=== PATIENT | male | born 1960 | race Caucasian/White ===

== ENCOUNTER → 2023-07-13 07:31 | Outpatient (REF) | payer OTHER, SELFPAY | LOC: RAD 07:31 | PROVIDERS: ATTENDING PHYSICIAN Internal Medicine Rheumatology; FAMILY PHYSICIAN Internal Medicine | DX: E83.110 Hereditary hemochromatosis (principal); L40.9 Psoriasis, unspecified; M25.50 Pain in unspecified joint; M79.643 Pain in unspecified hand; M79.671 Pain in right foot; M79.672 Pain in left foot | CPT/HCPCS: 73130; 73630 ==

== ENCOUNTER 2023-07-13 12:52 | Outpatient (RCR) | payer OTHER, SELFPAY ==
[2023-07-13 13:19] VITALS: BP 144/67
[2023-07-13 13:46] VITALS: BP 134/59
[2023-07-13 13:55] VITALS: BP 119/79
== END 2023-07-14 09:01 | disposition home or self-care (01) ==
LOC: OID 12:52
PROVIDERS: ATTENDING PHYSICIAN Internal Medicine Hematology & Oncology; FAMILY PHYSICIAN Internal Medicine
DX: E83.110 Hereditary hemochromatosis (principal)
CPT/HCPCS: 99195

== ENCOUNTER 2024-02-04 14:02 | Outpatient (RCR) | payer MEDICARE, OTHER, SELFPAY ==
[2024-02-04 14:10] VITALS: BP 126/71
[2024-02-04 14:35] VITALS: BP 124/71
[2024-02-04 14:40] VITALS: BP 119/74
== END 2024-02-15 23:59 | disposition home or self-care (01) ==
LOC: OID 14:02
PROVIDERS: ATTENDING PHYSICIAN Nurse Practitioner Adult Health; FAMILY PHYSICIAN Internal Medicine
DX: E83.110 Hereditary hemochromatosis (principal)
CPT/HCPCS: 99195

== ENCOUNTER → 2024-02-17 06:54 | Outpatient (REF) | payer MEDICARE, OTHER, SELFPAY | LOC: RAD 06:54 | PROVIDERS: ATTENDING PHYSICIAN Specialist; FAMILY PHYSICIAN Internal Medicine | DX: E83.110 Hereditary hemochromatosis (principal) | CPT/HCPCS: 76700 ==

== ENCOUNTER 2024-04-11 14:13 | Outpatient (RCR) | payer MEDICARE, OTHER, SELFPAY ==
[2024-04-11 14:32] VITALS: BP 120/67
[2024-04-11 15:18] VITALS: BP 118/67
[2024-04-11 15:25] VITALS: BP 115/70
== END 2024-04-12 09:52 | disposition home or self-care (01) ==
LOC: OID 14:13
PROVIDERS: ATTENDING PHYSICIAN Nurse Practitioner Adult Health; FAMILY PHYSICIAN Internal Medicine
DX: E83.110 Hereditary hemochromatosis (principal)
CPT/HCPCS: 99195

== ENCOUNTER 2024-12-22 13:33 | Outpatient (RCR) | payer MEDICARE, OTHER, SELFPAY ==
[2024-12-22 13:45] VITALS: BP 129/65
[2024-12-22 14:06] VITALS: BP 115/66
[2024-12-22 14:11] VITALS: BP 118/70
[2024-12-22 14:15] VITALS: BP 133/64
== END 2025-01-15 23:59 | disposition home or self-care (01) ==
LOC: OID 13:33
PROVIDERS: ATTENDING PHYSICIAN Internal Medicine Hematology & Oncology; FAMILY PHYSICIAN Internal Medicine
DX: E83.110 Hereditary hemochromatosis (principal)
CPT/HCPCS: 99195

== ENCOUNTER → 2024-12-28 06:31 | Outpatient (REF) | payer MEDICARE, OTHER, SELFPAY | LOC: RAD 06:31 | PROVIDERS: ATTENDING PHYSICIAN Specialist; FAMILY PHYSICIAN Internal Medicine | DX: E83.110 Hereditary hemochromatosis (principal) | CPT/HCPCS: 76700 ==

== ENCOUNTER 2025-01-26 06:19 | Day surgery (SDC) | payer MEDICARE, OTHER, SELFPAY | END 2025-01-26 11:13 | disposition home or self-care (01) | LOC: GI 06:19 | PROVIDERS: ATTENDING PHYSICIAN Specialist | DX: Z12.11 Encounter for screening for malignant neoplasm of colon (principal); K57.30 Diverticulosis of large intestine without perforation or abscess without bleeding; D12.3 Benign neoplasm of transverse colon; K63.5 Polyp of colon; Z86.0101 Personal history of adenomatous and serrated colon polyps | CPT/HCPCS: 45385; 88305 ==

== ENCOUNTER 2025-03-03 13:29 | Outpatient (RCR) | payer MEDICARE, OTHER, SELFPAY ==
[2025-03-03 14:09] VITALS: BP 128/63
[2025-03-03 14:28] VITALS: BP 111/61
[2025-03-03 14:35] VITALS: BP 108/64
== END 2025-03-17 23:59 | disposition home or self-care (01) ==
LOC: OID 13:29
PROVIDERS: ATTENDING PHYSICIAN Internal Medicine Hematology & Oncology; FAMILY PHYSICIAN Internal Medicine
DX: E83.110 Hereditary hemochromatosis (principal)
CPT/HCPCS: 99195